=== PATIENT | female | born 1975 | race Hispanic/Latino ===

== ENCOUNTER 2022-02-14 02:17 | Emergency (ER) | payer OTHER ==
[~2022-02-14] VITALS: Ht 172.7 cm; Wt 138.3 kg
[2022-02-14] MEDS ORDERED: CLONIDINE HCL 0.1 MG TABLET PO ONE (04:00)
[2022-02-14 04:19] LABS: BASOPHILS % (AUTO) 0.4 % (0.0-5.0); EOSINOPHILS % (AUTO) 0.2 % (0.0-8.0); HEMATOCRIT 35.9 % (36-48); LYMPHOCYTES % (AUTO) 24.6 % (21.0-51.0); MEAN CORPUSCULAR HEMOGLOBIN 26.7 pg (27.0-33.0); MEAN CORPUSCULAR HGB CONC 32.6 g/dL (32.0-36.0); MEAN CORPUSCULAR VOLUME 81.8 fL (79-99); MONOCYTES % (AUTO) 7.2 % (3.0-13.0); NEUTROPHILS % (AUTO) 67.2 % (40.0-77.0); PLATELET COUNT (AUTO) 155 K/uL (130-400); RED BLOOD CELL COUNT(AUTO) 4.39 MIL/uL (4.00-5.50); RED CELL DISTRIBUTION WIDTH 13.6 % (11.0-15.5); WHITE BLOOD COUNT (AUTO) 5.6 K/uL (4.8-10.8)
[2022-02-14 04:28] LABS: CREATININE 0.8 mg/dL (0.5-1.5); POTASSIUM 3.9 mmol/L (3.5-5.1)
[2022-02-14 04:41] LABS: ALBUMIN 3.5 g/dL (3.5-5.0); THYROID STIMULATING HORMONE 4.15 uIU/mL (0.36-3.74); TOTAL PROTEIN, SERUM 7.7 g/dL (6.0-8.3)
[2022-02-14] MEDS ORDERED: METO25 PO (04:48)
[2022-02-14 05:06] VITALS: BP 149/83
== END 2022-02-14 05:15 | disposition home or self-care (01) ==
LOC: EDH 02:17
DX: I10 Essential (primary) hypertension (principal); F43.10 Post-traumatic stress disorder, unspecified
CPT/HCPCS: 36415; 71045; 80053; 84443; 84484; 85025; 93005